=== PATIENT | male | born 1940 | race Caucasian/White ===

== ENCOUNTER → 2024-05-29 14:25 | Outpatient (REF) | payer OTHER, SELFPAY | LOC: RAD 14:25 | PROVIDERS: ATTENDING PHYSICIAN Student in an Organized Health Care Education/Training Program | DX: R49.0 Dysphonia (principal); R05.3 Chronic cough | CPT/HCPCS: 70360; 71046; 76536 ==

== ENCOUNTER → 2024-07-10 16:30 | Outpatient (REF) | payer OTHER, SELFPAY | LOC: PAVMRI 16:30 | PROVIDERS: ATTENDING PHYSICIAN Student in an Organized Health Care Education/Training Program | DX: R93.7 Abnormal findings on diagnostic imaging of other parts of musculoskeletal system (principal); R13.10 Dysphagia, unspecified | CPT/HCPCS: 72141 ==

== ENCOUNTER 2025-05-11 23:42 | Inpatient (IN) | payer OTHER, SELFPAY ==
[2025-05-11 15:55] VITALS: BP 158/64
[2025-05-11] MEDS: TYLENOL 650 MG PO (16:02)
[2025-05-11 16:44] LABS: COVID-19 Antigen Negative (Negative)
[2025-05-11 16:45] LABS: ALT (SGPT) 29 U/L (0-50); AST (SGOT) 32 U/L (17-59); Albumin 4.6 g/dl (3.5-5.0); Alkaline Phosphatase 114 U/L (38-126); Blood Urea Nitrogen 13 mg/dl (9-20); Calcium 8.7 mg/dl (8.4-10.2); Carbon Dioxide 22 mmol/L (22-30); Chloride 104 mmol/L (98-107); Glucose 119 mg/dl (70-99); Lipase 101 U/L (23-300); Potassium 4.0 mmol/L (3.5-5.1); Sodium 136 mmol/L (135-145); Total Protein 7.9 g/dl (6.3-8.2); eGFR > 60.00
[2025-05-11 16:49] LABS: Urine Character Clear (Clear)
[2025-05-11 17:02] LABS: Hematocrit 43.5 % (39.0-52.0); Hemoglobin 14.2 g/dL (13.0-18.0); Mean Corp Hgb Conc. 32.6 g/dL (33.0-37.0); Mean Corpuscular Volume 92.6 fL (80.0-94.0); Platelet Count 315 10^3/uL (130-400); Red Cell Dist. Width 13.6 % (11.5-14.5)
[2025-05-11 17:37] LABS: Nucleated Red Blood Cells % 0 % (-)
[2025-05-11 18:31] LABS: Urine Red Blood Cell 0-2 /HPF (0-2); Urine White Cell 0-2 /HPF (0-5)
--- NOTE | 2025-05-11 19:52 | ED.GENMED ---
History of Present Illness
<Yonny Rendon MD, Resident - Last Filed: 05/11/25 21:28>
General
Chief Complaint: Abdominal Pain
Source: patient
Exam Limitations: none
Time Seen by Provider: 05/11/25 19:39
History of Present Illness
History of Present Illness:
This is a 84-year-old male with no known past medical history, not on any medications presenting in the emergency department with concerns of abdominal pain. He reported that initially his symptoms included diarrhea started on and he had
explosive diarrhea for 2 days and on Sunday his diarrhea resolved however he started to notice abdominal pain which was progressively getting worse. His pain is mostly in the right upper quadrant. Admits to have some nausea but denies any
vomiting. Denies any recent sick contacts or recent travel or any other recent illness. He also felt warm today and when he checked his fever it was 102 which prompted him to visit the emergency department. He denies any previous similar episodes.
Past History
<Yonny Rendon MD, Resident - Last Filed: 05/11/25 21:28>
Past History
ED Past Medical History: None
ED Past Surgical History: Orthopedic
Patient has exhibited threatening behavior?: No
Social History
Tobacco: Non-smoker
Alcohol: Daily (Glass of wine)
Drug: None
Personal:
Living: with family
Family History
Family History: Other (Noncontributory)
Review of Systems
<Yonny Rendon MD, Resident - Last Filed: 05/11/25 21:28>
Review of Systems
Allergies reviewed?: Yes
Constitutional: Reports fever; Denies chills
EENT: Denies sore throat
Respiratory: Denies cough
Cardiac: Denies chest pain
ABD/GI: Reports abdominal pain and nausea; Denies vomiting, diarrhea or bloody stools
: Denies dysuria or frequency
Musculoskeletal: Denies joint pain
Skin: Denies itching
Neurological: Denies dizzy or weakness
Phy Exam
<Yonny Rendon MD, Resident - Last Filed: 05/11/25 21:28>
General Physical Exam
General Presentation: mild distress
General age: appears stated age
General Skin: warm
General Habitus: normal
General Mental: alert
General Hydration: appears well hydrated
Cardiovascular Exam
Cardiovascular Exam: regular rate/rhythm and no murmur
Pulmonary Exam
Pulmonary Exam: lungs clear, no crackles and no cough
Gastrointestinal Exam
Gastrointestinal Exam: soft, no pulsatile mass, non distended and tender (Right upper quadrant)
Musculoskeletal Exam
Musculoskeletal Exam: full ROM
Psychiatric Exam
Psychiatric Exam: normal mood/affect
Course
<Yonny eRndon MD, Resident - Last Filed: 05/11/25 21:28>
Orders/Labs/Results
Orders:
Orders
05/11/25 15:59
Acetaminophen [Tylenol] 650 mg PO NOW STA
05/11/25 16:17
COVID-19 Antigen Urgent
Source: Nasal Swab
Complete Blood Count/With Diff Urgent
Comprehensive Metabolic Panel Urgent
Lactic Acid Urgent
Lipase Urgent
Influenza A+B Rapid Molecular Urgent
ALENA Source: Nasal Swab
Specimen Description:
Date Specimen was Collected: 05/11/25
Time Specimen was Collected: 15:59
05/11/25 16:31
Urine Microscopic Reflex Cult Urgent
Urine Reflex Culture from UA [Urinalysis Reflex To Culture] Urgent
Date Specimen was Collected: 05/11/25
Time Specimen was Collected: 15:59
05/11/25 19:51
CT Abd/pelvis W Iv Cont Urgent
Comment:
Reason For Exam: Right upper quadrant abdominal pain
0.9% Sodium Chloride 1000 ml [Nss] 1,000 ml IV BOLUS
05/11/25 19:54
Blood Culture Q30M
ALENA Source: Blood/Venous
Specimen Description:
Blood Culture Q30M
ALENA Source: Blood/Venous
Specimen Description:
05/11/25 19:57
Ketorolac [Toradol] 15 mg IV NOW STA
Ondansetron Injectable [Zofran] 4 mg IV NOW STA
05/11/25 20:38
HYDROmorphone [Dilaudid] 0.5 mg IV NOW STA
Piperacillin/Tazo 3.375 Gram [Zosyn] 3.375 gram in 50 ml IV NOW
05/11/25 20:39
0.9% Sodium Chloride 1000 ml [Nss] 1,000 ml IV BOLUS
Abnormal Lab Results
05/11/25 05/11/25
16:17 16:31
WBC 24.9 H 10^3/uL
(4.8-10.8)
MCHC 32.6 L g/dL
(33.0-37.0)
Abs Immat Gran (auto) 0.2 H 10^3/uL
(0-0.05)
Absolute Neuts (auto) 22.0 H 10^3/uL
(1.4-6.5)
Absolute Monos (auto) 1.4 H 10^3/uL
(0.1-0.6)
Immature Gran % 0.7 H %
(0-0.5)
Neutrophils % 88.1 H %
(42.2-75.2)
Lymphocytes % 5.4 L %
(20.5-51.1)
Glucose 119 H mg/dl
(70-99)
Lactic Acid 3.0 H mmol/L
(0.7-2.0)
Urine Ketones 1+ A
(Negative)
Ur Occult Blood Reflex 1+ A
(Negative)
Urine Bacteria (Reflex) Few A
(Negative)
Urine Albumin (Reflex) 1+ A
(Neg - Trace)
05/11/25 16:17
05/11/25 16:17
Vital Signs
Initial and Last Documented VS:
Initial Vital Signs
Temp Pulse Resp BP Pulse Ox
102.0 F H 104 20 158/64 94
05/11/25 15:55 05/11/25 15:55 05/11/25 15:55 05/11/25 15:55 05/11/25 15:55
Last Documented Vital Signs
Temp Pulse Resp BP Pulse Ox
99.6 F 88 25 160/72 92
05/11/25 20:13 05/11/25 20:10 05/11/25 20:10 05/11/25 20:10 05/11/25 20:10
<Royal Pineda, DO - Last Filed: 05/11/25 21:31>
Orders/Labs/Results
Orders:
Orders
05/11/25 15:59
Acetaminophen [Tylenol] 650 mg PO NOW STA
05/11/25 16:17
COVID-19 Antigen Urgent
Source: Nasal Swab
Complete Blood Count/With Diff Urgent
Comprehensive Metabolic Panel Urgent
Lactic Acid Urgent
Lipase Urgent
Influenza A+B Rapid Molecular Urgent
ALENA Source: Nasal Swab
Specimen Description:
Date Specimen was Collected: 05/11/25
Time Specimen was Collected: 15:59
05/11/25 16:31
Urine Microscopic Reflex Cult Urgent
Urine Reflex Culture from UA [Urinalysis Reflex To Culture] Urgent
Date Specimen was Collected: 05/11/25
Time Specimen was Collected: 15:59
05/11/25 19:51
CT Abd/pelvis W Iv Cont Urgent
Comment:
Reason For Exam: Right upper quadrant abdominal pain
0.9% Sodium Chloride 1000 ml [Nss] 1,000 ml IV BOLUS
05/11/25 19:54
Blood Culture Q30M
ALENA Source: Blood/Venous
Specimen Description:
Blood Culture Q30M
ALENA Source: Blood/Venous
Specimen Description:
05/11/25 19:57
Ketorolac [Toradol] 15 mg IV NOW STA
Ondansetron Injectable [Zofran] 4 mg IV NOW STA
05/11/25 20:38
HYDROmorphone [Dilaudid] 0.5 mg IV NOW STA
Piperacillin/Tazo 3.375 Gram [Zosyn] 3.375 gram in 50 ml IV NOW
05/11/25 20:39
0.9% Sodium Chloride 1000 ml [Nss] 1,000 ml IV BOLUS
Abnormal Lab Results
05/11/25 05/11/25
16:17 16:31
WBC 24.9 H 10^3/uL
(4.8-10.8)
MCHC 32.6 L g/dL
(33.0-37.0)
Abs Immat Gran (auto) 0.2 H 10^3/uL
(0-0.05)
Absolute Neuts (auto) 22.0 H 10^3/uL
(1.4-6.5)
Absolute Monos (auto) 1.4 H 10^3/uL
(0.1-0.6)
Immature Gran % 0.7 H %
(0-0.5)
Neutrophils % 88.1 H %
(42.2-75.2)
Lymphocytes % 5.4 L %
(20.5-51.1)
Glucose 119 H mg/dl
(70-99)
Lactic Acid 3.0 H mmol/L
(0.7-2.0)
Urine Ketones 1+ A
(Negative)
Ur Occult Blood Reflex 1+ A
(Negative)
Urine Bacteria (Reflex) Few A
(Negative)
Urine Albumin (Reflex) 1+ A
(Neg - Trace)
05/11/25 16:17
05/11/25 16:17
Vital Signs
Initial and Last Documented VS:
Initial Vital Signs
Temp Pulse Resp BP Pulse Ox
102.0 F H 104 20 158/64 94
05/11/25 15:55 05/11/25 15:55 05/11/25 15:55 05/11/25 15:55 05/11/25 15:55
Last Documented Vital Signs
Temp Pulse Resp BP Pulse Ox
99.6 F 88 25 160/72 92
05/11/25 20:13 05/11/25 20:10 05/11/25 20:10 05/11/25 20:10 05/11/25 20:10
<Yonny Rendon MD, Resident - Last Filed: 05/11/25 21:28>
MDM/Problems Addressed
Differential Diagnosis Includes:
Cholelithiasis/cholecystitis/choledocholithiasis vs enteritis vs less likely liver disease vs less likely pain vs unlikely renal colic
MDM/Problems Addressed:
Patient with fever of 102.0. s/p 1 dose of Tylenol 650 mg p.o. tachycardic 104.
CBC with white count of 24.9. CMP with mild elevation of blood glucose.
Lactic acid elevated to 3.0.
Lipase of within normal limits. Urine with 1+ occult blood and few bacteria otherwise unremarkable.
COVID-negative, flu negative.
Hepatobiliary scan nuclear medicine;2009 reviewed- showed abnormal gallbladder ejection fraction
Get blood culture
CT abdomen/pelvis with IV
1 L normal saline bolus
1 dose of IV Zofran 4 mg
1 dose of IV Toradol 15 mg
Update: Repeat vital signs with temperature of 99.6. Pulse of 88. O2 sat 92% on RA
Patient continues to be in pain. Another bag of IV normal saline bolus. 1 dose of Dilaudid 0.5, started IV Zosyn
Update: CT showed The gallbladder is mildly distended with cholelithiasis and a small focus of gas in the gallbladder fundus concerning for emphysematous cholecystitis. The gallbladder abuts the hepatic flexure of the colon with some associated mild
wall thickening and stranding along the hepatic flexure which may represent an active element of reactive colitis. There is no clear fistulous connection between the colon and gallbladder.
Hospitalist and general surgery notified. Will admit the patient.
<Yonny Rendon MD, Resident - Last Filed: 05/11/25 21:28>
*Pulse Oximetry
SaO2: 94
Oxygen Mode of Delivery: Room air
<Royal Pineda, DO - Last Filed: 05/11/25 21:31>
*Radiology
Radiology exam reviewed: radiology read reviewed
*Pulse Oximetry
Patient hypoxic: no
*Critical Care Note
Total Time (30-74mins, 75-104mins- exclusive of procedures): 32
ED Attending Note
<Yonny Rendon MD, Resident - Last Filed: 05/11/25 21:28>
-
Portions of this chart may have been created with voice recognition software.� Occasional wrong word or��sound alike� substitutions may have occurred due to the inherent limitations of voice recognition software.
<Royal Pineda, - Last Filed: 05/11/25 21:31>
ED Attending Note
Patient seen and examined by attending physician: Yes
I performed a history and physical exam of patient and discussed management with resident, I reviewed resident's note and agree with documented findings and plan of care.: Yes
ED Attending Note:
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
Labs are noted, plan will involve resuscitation cultures and antibiotics imaging, likely admission
9:[address] noted report noted message sent to on-call hospitalist and general surgeon
Discharge Plan
Departure
Patient Disposition: Admit
Date of Disposition: 05/11/25
Time of Disposition: 21:27
Presentation/result/management discussed w/ accepting MD/DO: Hospitalist
Condition: Fair
Discharge Problem:
Emphysematous cholecystitis
Referrals:
UNKNOWN - PT DOES,NOT KNOW [Unknown Provider]
Interventions
Interventions:
*Risk Screen - Suicide Last Done: 05/11/25 20:11
*General Assessment Last Done: 05/11/25 15:55
*Neglect/Abuse Screening Last Done: 05/11/25 20:11
*ED- Fall Risk Assessment Last Done: 05/11/25 20:11
*ED COVID-19 Vaccine History Last Done: 05/11/25 20:11
Discharge Date and Time
Print Language: ERITREAN
[2025-05-11 19:54] VITALS: BMI 30.5
[2025-05-11] MEDS: TORADOL 15 MG IV (20:09)
[2025-05-11 20:10] VITALS: BP 160/72
[2025-05-11] MEDS: ZOFRAN 4 MG IV (20:10)
[2025-05-11] MEDS: NSS 1000 IV ×3 (20:10→22:42)
[2025-05-11 21:00] VITALS: BP 152/65
[2025-05-11] MEDS: ZOSYN 50 IV (21:00)
[2025-05-11] MEDS: DILAUDID 0.5 MG IV (21:01)
--- NOTE | 2025-05-11 21:31 | ED.GENMED ---
History of Present Illness
General
Chief Complaint: Abdominal Pain
Time Seen by Provider: 05/11/25 19:39
Past History
Past History
ED Past Medical History: None
ED Past Surgical History: Orthopedic
Patient has exhibited threatening behavior?: No
Social History
Tobacco: Non-smoker
Alcohol: Daily (Glass of wine)
Drug: None
Personal:
Living: with family
Family History
Family History: Other (Noncontributory)
Course
Orders/Labs/Results
Orders:
Orders
05/11/25 15:59
Acetaminophen [Tylenol] 650 mg PO NOW STA
05/11/25 16:17
COVID-19 Antigen Urgent
Source: Nasal Swab
Complete Blood Count/With Diff Urgent
Comprehensive Metabolic Panel Urgent
Lactic Acid Urgent
Lipase Urgent
Influenza A+B Rapid Molecular Urgent
ALENA Source: Nasal Swab
Specimen Description:
Date Specimen was Collected: 05/11/25
Time Specimen was Collected: 15:59
05/11/25 16:31
Urine Microscopic Reflex Cult Urgent
Urine Reflex Culture from UA [Urinalysis Reflex To Culture] Urgent
Date Specimen was Collected: 05/11/25
Time Specimen was Collected: 15:59
05/11/25 19:51
CT Abd/pelvis W Iv Cont Urgent
Comment:
Reason For Exam: Right upper quadrant abdominal pain
0.9% Sodium Chloride 1000 ml [Nss] 1,000 ml IV BOLUS
05/11/25 19:54
Blood Culture Q30M
ALENA Source: Blood/Venous
Specimen Description:
Blood Culture Q30M
ALENA Source: Blood/Venous
Specimen Description:
05/11/25 19:57
Ketorolac [Toradol] 15 mg IV NOW STA
Ondansetron Injectable [Zofran] 4 mg IV NOW STA
05/11/25 20:38
HYDROmorphone [Dilaudid] 0.5 mg IV NOW STA
Piperacillin/Tazo 3.375 Gram [Zosyn] 3.375 gram in 50 ml IV NOW
05/11/25 20:39
0.9% Sodium Chloride 1000 ml [Nss] 1,000 ml IV BOLUS
Abnormal Lab Results
05/11/25 05/11/25
16:17 16:31
WBC 24.9 H 10^3/uL
(4.8-10.8)
MCHC 32.6 L g/dL
(33.0-37.0)
Abs Immat Gran (auto) 0.2 H 10^3/uL
(0-0.05)
Absolute Neuts (auto) 22.0 H 10^3/uL
(1.4-6.5)
Absolute Monos (auto) 1.4 H 10^3/uL
(0.1-0.6)
Immature Gran % 0.7 H %
(0-0.5)
Neutrophils % 88.1 H %
(42.2-75.2)
Lymphocytes % 5.4 L %
(20.5-51.1)
Glucose 119 H mg/dl
(70-99)
Lactic Acid 3.0 H mmol/L
(0.7-2.0)
Urine Ketones 1+ A
(Negative)
Ur Occult Blood Reflex 1+ A
(Negative)
Urine Bacteria (Reflex) Few A
(Negative)
Urine Albumin (Reflex) 1+ A
(Neg - Trace)
05/11/25 16:17
05/11/25 16:17
Vital Signs
Initial and Last Documented VS:
Initial Vital Signs
Temp Pulse Resp BP Pulse Ox
102.0 F H 104 20 158/64 94
05/11/25 15:55 05/11/25 15:55 05/11/25 15:55 05/11/25 15:55 05/11/25 15:55
Last Documented Vital Signs
Temp Pulse Resp BP Pulse Ox
99.6 F 88 25 160/72 92
05/11/25 20:13 05/11/25 20:10 05/11/25 20:10 05/11/25 20:10 05/11/25 20:10
*Pulse Oximetry
SaO2: 92
Oxygen Mode of Delivery: Room air
ED Attending Note
-
Portions of this chart may have been created with voice recognition software.� Occasional wrong word or��sound alike� substitutions may have occurred due to the inherent limitations of voice recognition software.
Discharge Plan
Departure
Patient Disposition: Admit
Date of Disposition: 05/11/25
Time of Disposition: 21:27
Presentation/result/management discussed w/ accepting MD/DO: Hospitalist
Condition: Fair
Discharge Problem:
Emphysematous cholecystitis
Referrals:
UNKNOWN - PT DOES,NOT KNOW [Unknown Provider]
Interventions
Interventions:
*Risk Screen - Suicide Last Done: 05/11/25 20:11
*General Assessment Last Done: 05/11/25 15:55
*Neglect/Abuse Screening Last Done: 05/11/25 20:11
*ED- Fall Risk Assessment Last Done: 05/11/25 20:11
*ED COVID-19 Vaccine History Last Done: 05/11/25 20:11
Discharge Date and Time
Print Language: ANGOLAN
[2025-05-11 22:00] VITALS: BP 153/65
--- NOTE | 2025-05-11 22:46 | HPS.HSE ---
Addendum entered and electronically signed by Slade Carroll DO 05/11/25 23:53:
Patient seen and examined independently. Agree with findings and plan as set forth by BRONWYN Mtz.
Patient is an 84y M with PMH significant for dyslipidemia and anxiety who presents to ED complaining of abdominal pain. Patient reports diarrhea x several days starting last . Diarrhea resolved and he developed severe RUQ abdominal pain.
He states that he has had similar symptoms in the past due to gallbladder disease. He states that he has had gallbladder attacks intermittently over the past 50 years or so.
Patient presents to ED for evaluation. CT scan done here shows emphysematous cholecystitis.
Ass:
Acute Emphysematous Cholecystitis
Sepsis secondary to the above
Anxiety / Insomnia
Dyslipidemia
Plan:
Admit for further evaluation and treatment.
NPO, IVFs, IV abx.
Surgery consulted for further evaluation / recommendations.
Monitor for any new / worsening symptoms.
Original Note:
Family Physician
-
Family Physician: Rose Silva MD
Chief Complaint
-
abdominal pain
History of Present Illness
Patient is a 84-year-old male with past medical history significant for hyperlipidemia and anxiety who presented to [facility] ED for evaluation of abdominal pain. Patient reports eating at a new restaurant on evening that was followed by
explosive diarrhea through Sunday. Following resolution of diarrhea he started with intermittent RUQ abdominal pain. He reports patient was severe at 7-8 this morning and by 9 he felt 'morbidity' setting in. Patient reports this pain is similar to
what he has experienced in the past with his gallbladder. He also explains that he feels there is inflammation in the area of the gallbladder. Patient denies any recent travel, sickness, fever, chills, cough, shortness of breath, chest pain, nausea
or vomiting.
Medical History
Past Medical History
Past Medical History: Reports Other
Additional Past Medical History:
hyperlipidemia
anxiety
Past Surgical History: Reports Other
Additional Past Surgical History:
tonsillectomy
Hemorrhoidectomy
Right L4 TFESI 07/14/2020
Social History
Tobacco: Non-smoker
Alcohol: Daily (1-2 glasses of wine )
Drug: None
Personal:
Living: With Family
Employment: Employed
Family History
Family History: Other (Father: [place]; Mother: significant psych history )
Allergies / Home Medications
Allergies reflects when Allergies were last updated in [employer].
Home Medications with original date entered in [employer]
Allergy/Medication List:
Allergies
Allergy/AdvReac Type Severity Reaction Status Date / Time
No Known Allergies Allergy Verified 05/11/25 15:55
Home Medications
atorvastatin 1 tab PO HS 05/11/25
zolpidem 10 mg tablet 10 mg PO HS 05/11/25
Review of Systems
-
History Source: Patient
Constitutional: Reports No Symptoms
EENT: Reports No Symptoms
Respiratory: Reports No Symptoms
Cardiac: Reports No Symptoms
Abdomen/GI: Reports Abdominal Pain
: Reports No Symptoms
Musculoskeletal: Reports No Symptoms
Skin: Reports No Symptoms
Neurological: Reports No Symptoms
Endocrine: Reports No Symptoms
Hematologic/Lymphatic: Reports No Symptoms
Psych: Reports No Symptoms
Physical Exam
Vital Signs
Vital Signs
Temp Pulse Resp BP Pulse Ox
99.6 F 88 25 160/72 92
05/11/25 20:13 05/11/25 20:10 05/11/25 20:10 05/11/25 20:10 05/11/25 20:10
Physical Exam
General: Well Developed, Well Nourished, No Apparent Distress and Morbidly Obese
HEENT: NormoCephalic, Moist mucous membranes and Atraumatic
Respiratory: Clear and Non Labored Respirations
Cardiac: S1/S2 and Regular Rhythm; No Murmur, Rub or Gallop
Breast: Deferred by me
GI: Soft, Non Tender, Non Distended and Normal Bowel Sounds; No Organomegaly
Rectal: Deferred by Provider
Genito-urinary: Deferred by me
Musculoskeletal: No Clubbing, No Cyanosis and No Edema
Skin: Warm and IV/Catheter Site
Neuro: Awake, AO x 3 and Nonfocal/grossly intact
Psych: Calm and Intact Judgment/Insight
Laboratory Results
-
05/11/25 16:17
05/11/25 16:17
Laboratory Results
Lactic Acid 3.0 mmol/L (0.7-2.0) H 05/11/25 16:17
Total Bilirubin 0.7 mg/dl (0.2-1.3) 05/11/25 16:17
AST 32 U/L (17-59) 05/11/25 16:17
ALT 29 U/L (0-50) 05/11/25 16:17
Alkaline Phosphatase 114 U/L (38-126) 05/11/25 16:17
Lipase 101 U/L (23-300) 05/11/25 16:17
Data Reviewed
-
CT Scan: Report Reviewed by me (Abd/Pel: The gallbladder is mildly distended with cholelithiasis and a small focus of gas in the gallbladder fundus concerning for emphysematous cholecystitis. The gallbladder abuts the hepatic flexure of the colon
with some associated mild wall thickening and stranding along the hepatic flexure whi)
Lab Data: Labs Reviewed by me (WBC 24.9, Neut 88.1, Lactic 3.0)
Impression/Plan
-
IMPRESSION/PLAN:
#abdominal pain
#sepsis likely 2/2 acute cholecystitis, emphysematous cholecystitis
WBC 24.9, Neut 88.1, Lactic 3.0
Abd/Pel CT: The gallbladder is mildly distended with cholelithiasis and a small focus of gas in the gallbladder fundus concerning for emphysematous cholecystitis. The gallbladder abuts the hepatic flexure
of the colon with some associated mild wall thickening and stranding along the hepatic flexure which may represent an active element of reactive colitis. There is no clear fistulous connection
between the colon and gallbladder.
Hepatic steatosis.
Moderate prostatomegaly.
- Admit to med/surg
- Consult Surgery
- IVF NSS 100cc/hr
- IV Zosyn
- pain regimen
- antiemetics
- NPO
#insomnia
- continue zolpidem
#hyperlipidemia
- atorvastatin at home, unaware of dose
#anxiety
Code status: full code
DVT prophylaxis: SCDs
--- NOTE | 2025-05-11 23:30 | EDRN ---
Patient ambulated into and out of bathroom and back in bed resting comfortably, Dr. Carroll in to see patient.
[2025-05-12] VITALS (16 sets, daily range): BP systolic 10–150; BP diastolic 57–85; BMI 30.3
[2025-05-12] MEDS: NSS 1000 IV ×2 (01:23→17:34)
[2025-05-12] MEDS: DILAUDID 0.5 MG IV ×2 (01:25→05:23)
[2025-05-12] MEDS: AMBIEN 10 MG PO ×2 (02:11→21:18)
[2025-05-12 07:18] LABS: Blood Urea Nitrogen 14 mg/dl (9-20); Calcium 7.8 mg/dl (8.4-10.2); Carbon Dioxide 24 mmol/L (22-30); Chloride 107 mmol/L (98-107); Estimated Creatinine Clearance 83 ml/min; Glucose 118 mg/dl (70-99); Potassium 4.2 mmol/L (3.5-5.1); Sodium 138 mmol/L (135-145); eGFR > 60.00
[2025-05-12 07:27] LABS: Hematocrit 37.0 % (39.0-52.0); Hemoglobin 12.2 g/dL (13.0-18.0); Mean Corp Hgb Conc. 33.0 g/dL (33.0-37.0); Mean Corpuscular Volume 93.7 fL (80.0-94.0); Platelet Count 251 10^3/uL (130-400); Red Cell Dist. Width 14.0 % (11.5-14.5)
[2025-05-12] MEDS: ZOSYN 50 IV ×3 (08:28→19:47)
--- NOTE | 2025-05-12 08:44 | CON.GS ---
Addendum entered and electronically signed by Richard Watson MD 05/12/25 09:44:
Patient seen and examined.
Patient is a 84 yo M yo M with a PMH of obesity, spinal stenosis s/p lumbar discectomy and fusion, HLD, and recurrent episodes of symptomatic cholelithiasis who presents to the ER with approximately 6 days of upper abdominal pain. He states that
his symptoms began last after eating had a [employer] restaurant up in [facility]. He reports episodes of diarrhea and crampy abdominal discomfort. Over the weekend he had more focal RUQ abdominal discomfort. He reports several attacks over the
past 50 years occurring on a monthly to bimonthly basis. Episodes are usually relieved with OTC pain medications and nausea and vomiting. Currently he reports persistent RUQ discomfort. Associated fevers and chills. No current or vomiting. He
denies any jaundice, pale stools, or blood in urine. No notable family history.
Gen: NAD
Abd: soft, tender to palpation in RUQ, obese, distended, no diffuse peritonitis, no prior abdominal incisions
Labs and CT scan were reviewed
Patient is a 84 yo M p/w severe emphysematous acute calculus cholecystitis
The natural history and pathophysiology of biliary and stone disease was briefly reviewed. Options for management including medical management with antibiotics, procedural management with cholecystostomy tube, and surgical management
cholecystectomy were considered and discussed. The pros and cons of all approaches was discussed. Given his persistent symptoms recommend cholecystectomy.
Plan for laparoscopic possible open cholecystectomy with cholangiogram. The procedure itself, as well as the risks, benefits, and alternatives was discussed. Specific, we discussed risks of bleeding, infection, injury to surrounding structures
(bowel, bile ducts), CBD injury, need for open procedure. We did discuss that given his delay in presentation and management of his gallbladder issues both during this immediate attack and prior attacks he he may have a more chronic cholecystitis
and difficult operation. Typical postprocedure recovery including pain management, potential need for operative training, activity restrictions, and the 10 to 20% risks of fluctuations in GI function discussed. All questions answered. Consent
signed.
-- Laparoscopic cholecystectomy with IOC
-- NPO, IVF
-- Abx: Zosyn
-- Pain control: Tylenol, IV Dilaudid PRN
Original Note:
Consultation
-
Date/Time Consultation Requested: 05/11/2025
Date/Time Consultation Performed: 05/12/2025
Requesting Provider: Slade Carroll
Performing Provider: Walter Ramos
Reason for Consultation: Sepsis, Emphysematous Cholecystitis
Medical History
-
Chief Complaint: 84 y/o M w/ PMH of dyslipidemia and anxiety c/o severe RUQ abdominal pain
History of Present Illness:
84 y/o M with PMH of dyslipidemia and anxiety presented to the ED yesterday c/o abdominal pain. Patient states that he went out to eat a veggie restaurant in [facility] on and had explosive diarrhea afterwards. He states he's been having this
diarrhea since but has since resolved. Patient also states that he started having severe RUQ pain around this time as well. Patient is admits to having similar episodes in the past due to Gallbladder disease. He states that he has had
Gallbladder attacks intermittently over the last 5 decades. He currently denies any nausea, vomiting, or pain (he is on pain meds prn). He also denies any BM or passing of flatus since arrival. He admits to burping a little this morning. Patient
denies any f/c/myalgias. He states that he was offered gallbladder surgery in the past but always declined.
Past Medical History
Past Surgical History: Orthopedic (Spinal stenosis (back surgery))
Social History
Tobacco: Non-Smoker
Alcohol: Occasional
Drug: None
Personal:
Living: With Family
Family History
Family History: CAD (Father from CAD at the age of 50)
Allergies / Home Medications
Allergy/AdvReac Type Severity Reaction Status Date / Time
No Known Allergies Allergy Verified 05/11/25 15:55
�Medication �Instructions �Recorded �Confirmed �Type
acetaminophen 500 mg tablet 2,000 mg PO BIDPRN PRN mild pain 05/11/25 05/11/25 History
(Tylenol Extra Strength)
alprazolam 0.25 mg tablet 0.25 mg PO DAILYPRN PRN anxiety 05/11/25 05/11/25 History
atorvastatin 10 mg tablet 10 mg PO HS High Cholesterol 05/11/25 05/11/25 History
bismuth subsalicylate 262 mg/15 mL 524 mg PO TIDPRN PRN stomach pain 05/11/25 05/11/25 History
oral suspension (Kaopectate
(bismuth subsalicylate))
bismuth subsalicylate 262 mg/15 mL 1,048 mg PO ONCE PRN stomach pain 05/11/25 05/11/25 History
oral suspension (Pepto-Bismol)
omeprazole 40 mg capsule,delayed 40 mg PO DAILY Gastrointestinal 05/11/25 05/11/25 History
release Issue
zolpidem 10 mg tablet 10 mg PO HS Sleep 05/11/25 05/11/25 History
AFVSS
Labs: Neutrophils increased, thrombocytes decreased. Last recorded lactic acid was 1.6.
Review of Systems
-
History Source: Patient
All other systems: Negative unless noted
Abdomen/GI: Abdominal Pain
: Difficulty Voiding
A 10 point review of systems was completed, and was negative except as per HPI.
Physical Exam
Vital Signs
Temp Pulse Resp BP Pulse Ox
98.0 F 79 17 136/85 95
05/12/25 07:50 05/12/25 07:50 05/12/25 07:50 05/12/25 07:50 05/12/25 07:50
05/11/25 05/12/25 05/13/25
06:59 06:59 06:59
Actual Weight 95.663 kg
Body Mass Index (BMI) 30.3
Lab Results
05/12/25 06:27
05/12/25 06:27
WBC 35.8 10^3/uL (4.8-10.8) H 05/12/25 06:27
Hgb 12.2 g/dL (13.0-18.0) L 05/12/25 06:27
Hct 37.0 % (39.0-52.0) L 05/12/25 06:27
Plt Count 251 10^3/uL (130-400) D 05/12/25 06:27
Abs Immat Gran (auto) 0.2 10^3/uL (0-0.05) H 05/11/25 16:17
Neutrophils % 88.1 % (42.2-75.2) H 05/11/25 16:17
CT of Abdomen/Pelvis with IV contrast: Gallbladder mildly distended with small focus on fundus.
Labs: WBC Count went up to 35.8 (H). Neutrophils increased and Lymphocytes decreased indicating active underying inflammation and infection.
Physical Exam
General: Well Developed, Well Nourished and Comfortable
HEENT: Normocephalic, Anicteric and Atraumatic
Respiratory: Non Labored Respirations
Breast: Deferred by me
GI: Tender (TTP around RUQ area. ) and Distended
Rectal: Deferred by Provider
Musculoskeletal: Other
Neuro: AO x 3
Psych: Calm
Data Reviewed
-
CT Scan: Discussed with Physician and Discussed with Patient
Labs: Discussed with Physician and Discussed with Patient
Critical Care Time (in minutes): 25
Total Time Spent with Patient (in minutes): 40
Assessment / Plan
-
84 y/o M w/ PMH of HLD and anxiety presenting with severe RUQ abdominal pain and severe diarrhea. Patient CT scan indicated Emphysematous Cholecystitis.
Keep patient NPO
Continue IVF
Continue broad spectrum IV Abx (Zosyn) Q6H
Recommend emergent laparoscopic cholecystectomy today
Follow labs to trend infection status
Patient was educated on the risks of the procedure and what post procedure care would look like.
Patient was given consent form to sign for surgery.
--- NOTE | 2025-05-12 09:44 | W.SUR.PREOP ---
Pre-Operative Surgical Note
-
I have examined this patient prior to the performance of the scheduled procedure.
The patient's condition is unchanged from the time of the current History and
Physical and the patient is able to undergo the scheduled procedure.
--- NOTE | 2025-05-12 11:35 | W.PN.HOSP.TC ---
Today's Communication/Plan
-
lap autumn
abx
f/u stool cultures, cdiff if having diarrhea
pain control
Assessment / Plan
Assessment / Plan
Physical Exam
General: Well Developed, Well Nourished, No Apparent Distress and Morbidly Obese
HEENT: NormoCephalic, Moist mucous membranes and Atraumatic
Respiratory: Clear and Non Labored Respirations
Cardiac: S1/S2 and Regular Rhythm; No Murmur, Rub or Gallop
Breast: Deferred by me
GI: Soft, Non Tender ({on dilaudid), Non Distended and Normal Bowel Sounds; No Organomegaly
Rectal: Deferred by Provider
Genito-urinary: Deferred by me
Musculoskeletal: No Clubbing, No Cyanosis and No Edema
Skin: Warm and IV/Catheter Site
Neuro: Awake, AO x 3 and Nonfocal/grossly intact
Psych: Calm and Intact Judgment/Insight
#abdominal pain
#sepsis likely 2/2 acute cholecystitis, emphysematous cholecystitis
- IVF
-Zosyn
- Surgery consulted for lap autumn
- pain regimen
- antiemetics
- NPO
-F/u cultures
-CDiff ordered although no BM x 2 days, therefore doubt CDiff, and most likely colitis, already on antibiotics
#insomnia
- continue zolpidem
#hyperlipidemia
- atorvastatin - holding while npo
#anxiety
# Prostatatomegaly
� Follow-up urology outpatient
Total time spent on today's encounter was 53 minutes which included time spent in counseling the patient/family regarding diagnosis and treatment plan as listed above, goals of care, and symptom management. Case was discussed with nursing staff,
specialists, and care coordinators/case management. All labs and imaging personally reviewed by me. Remainder the time spent in detailed review of previous records, lab data, imaging, and other medical provider documentation.
Anticipated Discharge: Today
Subjective/Interval History
-
Date of Service: May 12, 2025
Pain controlled by opiates
Objective Data
-
Labs:
Laboratory Results
05/12/25
06:27
WBC 35.8 H
Hgb 12.2 L
Hct 37.0 L
Plt Count 251 D
Sodium 138
Potassium 4.2
Chloride 107
Carbon Dioxide 24
BUN 14
Creatinine 0.8
Glucose 118 H
Calcium 7.8 L
Vital Signs:
Vital Signs
Temp Pulse Resp BP Pulse Ox
98.0 F 79 17 136/85 95
05/12/25 07:50 05/12/25 07:50 05/12/25 07:50 05/12/25 07:50 05/12/25 08:15
Review of Systems
-
History Source: Patient
All other systems: Not reviewed unless documented
Data Reviewed
-
CT Scan: Report Reviewed by me
Labs: Labs Reviewed by me
--- NOTE | 2025-05-12 14:39 | W.IMMPOSTOP ---
Surgical Immed Post Op Note
-
Primary Surgeon: Walter
Assisting Surgeon: None
Pre-op Diagnosis: Acute emphysematous cholecystitis
Post-op Diagnosis: Acute gangrenous and emphysematous cholecystitis
Procedure Performed: Laparoscopic cholecystectomy with IOC
Anesthesia Type: General
Specimen / Cultures:
1. Gallbladder
Estimated Blood Loss: 3 cc
Complications: None
Operative Findings:
1. Severely inflamed, gangrenous with patchy necrosis, emphysematous GB with moderate wall thickening, black stones and purulence within GB
2. Critical view
3. IOC with anatomy confirmed and no clear evidence of filling defects (study limited by filling of GB)
4. Artery take with clips, duct with clips and 0 PDS Endoloop
5. 19 Fr Eamon drain into operative field
Plan:
-- LEONILA drain to remain in place until POD#2
-- Plan for 7 days of post-op abx given purulence and sepsis present on admission
--- NOTE | 2025-05-12 15:21 | CM ---
CM following re: discharge planning.
Reviewed pt's chart, met with pt earlier today.
Pt is an 84 year old male, admitted with primary dx of POD#0 Laparoscopic cholecystectomy with IOC. Continue supportive care.
Pt lives with spouse 2SH, 2 steps to enter, has supportive family. pt described himself as independent in all areas [employer].
PCP: Rose Silva
Pharmacy: [facility]
D/C plan: uncertain at this time and will depend on pt's progress.
CM will follow with discharge plan updates as hospitalization progresses
--- NOTE | 2025-05-12 17:48 | PTCARENOTE ---
Pt arrived from PACU s/p lap autumn. Pt has 4 lap sites and a LEONILA drain in the RUQ with serosang drainage. Pt returned to floor on 4L at 92%. IS encouraged. Care ongoing.
[2025-05-12] MEDS: LIPITOR 10 MG PO (21:18)
[2025-05-13] MEDS: ZOSYN 50 IV ×4 (01:41→20:09)
[2025-05-13 03:10] VITALS: BP 139/67
[2025-05-13] MEDS: NSS 1000 IV (04:31)
[2025-05-13 06:06] LABS: Hematocrit 36.6 % (39.0-52.0); Hemoglobin 11.7 g/dL (13.0-18.0); Mean Corp Hgb Conc. 32.0 g/dL (33.0-37.0); Mean Corpuscular Volume 94.8 fL (80.0-94.0); Platelet Count 238 10^3/uL (130-400); Red Cell Dist. Width 14.5 % (11.5-14.5)
[2025-05-13 06:37] LABS: ALT (SGPT) 47 U/L (0-50); AST (SGOT) 47 U/L (17-59); Albumin 3.3 g/dl (3.5-5.0); Alkaline Phosphatase 84 U/L (38-126); Blood Urea Nitrogen 15 mg/dl (9-20); Calcium 8.1 mg/dl (8.4-10.2); Carbon Dioxide 28 mmol/L (22-30); Chloride 108 mmol/L (98-107); Estimated Creatinine Clearance 73 ml/min; Glucose 118 mg/dl (70-99); Potassium 4.3 mmol/L (3.5-5.1); Sodium 138 mmol/L (135-145); Total Protein 6.0 g/dl (6.3-8.2); eGFR > 60.00
[2025-05-13 07:50] VITALS: BP 161/74
[2025-05-13] MEDS: PROTONIX IV 40 MG IV (08:36)
[2025-05-13] MEDS: DUONEB 3 ML INH ×3 (09:57→18:19)
--- NOTE | 2025-05-13 09:57 | PTCARENOTE ---
Received care of pt. Pt SOB and lungs diminished with expiratory wheezing and dyspnea at rest. Pt able to hit 750-[address] Paulino notified. Chest xray and echo ordered. Nebulizers and lasix ordered. Advised to give lasix after chest xray
results. Care ongoing.
--- NOTE | 2025-05-13 10:17 | W.PN.GS2 ---
Addendum entered and electronically signed by Richard Watson MD 05/13/25 15:28:
Patient seen and examined.
Pain overall well-controlled. No nausea or vomiting. Reports passing flatus, no BM. Reports some wheezing and shortness of breath. Denies chest pain. No fevers.
Gen: NAD
Abd: soft, appropriately tender, obese, ND, non-peritoneal, incisions c/d/i - no erythema, ecchymosis or drainage, LEONILA serosang, non-bilious
Patient is an 84 yo M p/w acute gangrenous, emphysematous cholecystitis
POD#1 s/p laparoscopic cholecystectomy with IOC
AVSS
Labs notable for leukocytosis 29 downtrending, stable Hb, normal bilirubin, LFTs, and ALP
Recovering well from a postoperative standpoint. Cardiopulmonary workup for postoperative shortness of breath per Hospitalist (CXR and TTE). Okay for low-fat diet as tolerated. MiraLAX for bowel function. Trend labs. Tentative plan for LEONILA
removal tomorrow pending output and labs. Continue with the postoperative antibiotics, would recommend at least 7 days postoperative coverage.
-- LFD
-- HLIV
-- Pain control: Tylenol, Toradol, Oxycodone
-- Abx: Zosyn, plan for at least 7 days post-op
-- OK for home meds
-- DVT: Lovenox
-- GI: Home PPI
-- Maintain LEONILA, likely DC tomorrow pending outputs and labs
Original Note:
Today's Communication / Plan
-
Current temperature (98.1) indicates that patient is afebrile.
Lab values with normal LFT's and decreasing WBC count (35.8 down to 29.0) indicate inflammation and infection is resolving.
Continue 7 day Post op Abx regimen d/t purulence and sepsis seen on admission.
Continue to monitor drain output for proper volume, any changes from serosanguinious fluid drainage that might indicate bile leak.
Remove drain POD #2 if patient is clinically improving and drainage becomes minimal stays non-purulent.
Advance patient diet from clears to solid LFD as long as patient can tolerate it.
Transition off of IVF if tolerating solid food.
Order nebulizer treatment to help patient with his SOB.
If patient continues to improve, he can be considered for discharge.
Assessment / Plan
-
84 y/o M s/p laparoscopic cholecystectomy w IOC for acute gangrenous cholecystitis.
Patient is stable and recovering well
Follow lab trend
Advance diet from clears to solid LFT
Check drain output
Continue Abx
Order Nebulizer treatment for SOB
Time Spent
Total Time Spent with Patient (in minutes): 40
Subjective Data
-
Date of Service: May 13, 2025
Patient is a 84 yo M POD #1 s/p laparoscopic cholecystectomy w/ IOC for his acute gangrenous and emphysematous cholecystitis. Patient has a PMH of obesity, spinal stenosis s/p lumbar discectomy and fusion, HLD, and recurrent episodes of symptomatic
cholelithiasis. He initially presented to the ER with approximately 6 days of upper abdominal pain, stating that his symptoms began last after eating at a veggie restaurant [place] [facility]. Patient currently denies any n/v/f/c/BM/flatus.
Patient admits to having a more noticeable wheezing and SOB as well as coughing up some clear expectorate this morning. Patient states that he's ready to move from a clear to a LFD.
Objective Data
-
Intake and Output
05/12/25 05/13/25 07
06:59 06:59 06:59
Intake Total 180 / 180 100 / 100
Output Total 10 / 10 40 / 40
Balance 170 / 170 60 / 60
Intake:
Oral fluids 30 / 30
IV fluids (Total) 150 / 150
Normosol 150 / 150
IV piggybacks 100 / 100
Output:
Drain Output (Total)
Right Upper Abdomen Don-
Dsouza
Other:
Number of approximated MODERATE 1 2 1
amounts of urine
Vital Signs
Temp Pulse Resp BP Pulse Ox
98.1 F 77 18 161/74 95
05/13/25 07:50 05/13/25 09:59 05/13/25 09:59 05/13/25 07:50 05/13/25 09:59
Lab Results
05/13/25 05:37
05/13/25 05:37
Calcium 8.1 mg/dl (8.4-10.2) L 05/13/25 05:37
Total Bilirubin 0.6 mg/dl (0.2-1.3) 05/13/25 05:37
AST 47 U/L (17-59) 05/13/25 05:37
ALT 47 U/L (0-50) 05/13/25 05:37
Alkaline Phosphatase 84 U/L (38-126) 05/13/25 05:37
Total Protein 6.0 g/dl (6.3-8.2) L D 05/13/25 05:37
Albumin 3.3 g/dl (3.5-5.0) L 05/13/25 05:37
AFVSS (except BP is a elevated at 161/74)
Labs: LFT normal, WBC Count trending down to (29.0)
Physical Exam
-
General: NAD
AAAOx3
Chest: No Labored Breathing
Abdomen: No TTP around RUQ/Drain site. Drain site is healing well. Drain output was emptied earlier this morning. Drain fluid looks serosanguinous.
Patient has a trejo catheter: No
Patient has a central line: No
--- NOTE | 2025-05-13 11:41 | W.PN.HOSP.TC ---
Today's Communication/Plan
-
IV lasix
ECHO
Duonebs
IC, Acapella
Drain management
abx
Assessment / Plan
Assessment / Plan
Physical Exam
General: Well Developed, Well Nourished, No Apparent Distress and Morbidly Obese
HEENT: NormoCephalic, Moist mucous membranes and Atraumatic
Respiratory: Expiratory wheeze
Cardiac: S1/S2 and Regular Rhythm; No Murmur, Rub or Gallop
Breast: Deferred by me
GI: Soft, Non Tender ({on dilaudid), Non Distended and Normal Bowel Sounds; No Organomegaly
Rectal: Deferred by Provider
Genito-urinary: Deferred by me
Musculoskeletal: No Clubbing, No Cyanosis and No Edema
Skin: Warm and IV/Catheter Site
Neuro: Awake, AO x 3 and Nonfocal/grossly intact
Psych: Calm and Intact Judgment/Insight
#abdominal pain
#sepsis likely 2/2 acute cholecystitis, emphysematous cholecystitis
-s/p Lap Autumn 05/12 with IOC for acute gangrenous cholecystitis
- IVF
-Zosyn
-Continue 7 day Post op Abx regimen d/t purulence and sepsis seen on admission.
-Drain to stay in place until most likely tomorrow
- pain regimen
-advance diet
-F/u cultures
--ADAT
-no diarrhea noted
#Acute Hypoxic Respiratory failure
#Dyspnea
-89% on RA
- suspect fluid overload
-Duonebs did not help patient
-Already on abx, no obvious productive cough
-continue IC, Acapella
- add on proBNP
-ECHO
-Trial IV lasix
#insomnia
- continue zolpidem
#hyperlipidemia
- atorvastatin - holding while npo
#anxiety
# Prostatatomegaly
� Follow-up urology outpatient
Total time spent on today's encounter was 51 minutes which included time spent in counseling the patient/family regarding diagnosis and treatment plan as listed above, goals of care, and symptom management. Case was discussed with nursing staff,
specialists, and care coordinators/case management. All labs and imaging personally reviewed by me. Remainder the time spent in detailed review of previous records, lab data, imaging, and other medical provider documentation.
Anticipated Discharge: 24 - 48 hours
Subjective/Interval History
-
Date of Service: May 13, 2025
s/p lap autumn; dyspneic and with expiratory wheeze this am
Objective Data
-
Labs:
Laboratory Results
05/13/25
05:37
WBC 29.0 H
Hgb 11.7 L
Hct 36.6 L
Plt Count 238
Sodium 138
Potassium 4.3
Chloride 108 H
Carbon Dioxide 28
BUN 15
Creatinine 0.9
Glucose 118 H
Calcium 8.1 L
Total Bilirubin 0.6
AST 47
ALT 47
Alkaline Phosphatase 84
Vital Signs:
Vital Signs
Temp Pulse Resp BP Pulse Ox
98.1 F 77 18 161/74 95
05/13/25 07:50 05/13/25 09:59 05/13/25 09:59 05/13/25 07:50 05/13/25 09:59
I&O
05/12/25 05/13/25 05/14/25
06:59 06:59 06:59
Intake Total 180 / 180 220 / 220
Output Total 10 / 140 / 140
Balance 170 / 170 80 / 80
Review of Systems
-
History Source: Patient
All other systems: Reviewed and negative
Data Reviewed
-
CT Scan: Report Reviewed by me
Labs: Labs Reviewed by me
[2025-05-13 12:00] VITALS: BP 164/84
[2025-05-13] MEDS: DUONEB INH (12:07)
[2025-05-13] MEDS: LASIX 40 MG IV (12:10)
--- NOTE | 2025-05-13 14:59 | CM ---
CM following re: discharge planning.
Reviewed pt's chart, met with pt and pt's spouse at bedside.
Pt is POD#1 s/p laparoscopic cholecystectomy w IOC for acute gangrenous cholecystitis. Pt stated he is doing well. Pt expressed his desire to return back home at discharge. Spouse stated she will transport pt home.
D/C plan: home with no anticipated after care VN needs. Spouse to transport.
CM will follow with discharge plan updates as hospitalization progresses
[2025-05-13 15:30] VITALS: BP 148/88
[2025-05-13] MEDS: LOVENOX 40 MG SC (17:13)
[2025-05-13] MEDS: NSS IV (19:20)
[2025-05-13] MEDS: AMBIEN 10 MG PO (22:06)
[2025-05-13] MEDS: LIPITOR 10 MG PO (22:06)
[2025-05-13 23:10] VITALS: BP 105/70
[2025-05-14] MEDS: ZOSYN 50 IV ×2 (01:09→08:06)
[2025-05-14 06:04] LABS: Hematocrit 35.7 % (39.0-52.0); Hemoglobin 11.8 g/dL (13.0-18.0); Mean Corp Hgb Conc. 33.1 g/dL (33.0-37.0); Mean Corpuscular Volume 91.8 fL (80.0-94.0); Platelet Count 254 10^3/uL (130-400); Red Cell Dist. Width 14.3 % (11.5-14.5)
[2025-05-14 06:33] LABS: ALT (SGPT) 48 U/L (0-50); AST (SGOT) 47 U/L (17-59); Albumin 3.3 g/dl (3.5-5.0); Alkaline Phosphatase 77 U/L (38-126); Blood Urea Nitrogen 17 mg/dl (9-20); Calcium 7.9 mg/dl (8.4-10.2); Carbon Dioxide 28 mmol/L (22-30); Chloride 105 mmol/L (98-107); Estimated Creatinine Clearance 73 ml/min; Glucose 108 mg/dl (70-99); Potassium 3.5 mmol/L (3.5-5.1); Sodium 137 mmol/L (135-145); Total Protein 6.0 g/dl (6.3-8.2); eGFR > 60.00
[2025-05-14 07:20] VITALS: BP 129/71
[2025-05-14] MEDS: PROTONIX IV 40 MG IV (08:06)
[2025-05-14] MEDS: NSS (PRESERVATIVE FREE) 10 ML IV (08:06)
[2025-05-14] MEDS: FLUSH (NSS) 1 FLUSH IV (08:07)
[2025-05-14] MEDS: MIRALAX 17 GRAMS PO (08:13)
[2025-05-14] MEDS: DUONEB 3 ML INH (08:26)
--- NOTE | 2025-05-14 08:39 | W.PN.GS2 ---
Today's Communication / Plan
-
-- Continue pulm toilet and OOB
-- Abx: Zosyn, plan for at least 7 days post-op (Augmentin on DC)
-- OK for DC from surgical standpoint
Assessment / Plan
-
Patient is an 84 yo M p/w acute gangrenous, emphysematous cholecystitis
POD#2 s/p laparoscopic cholecystectomy with IOC
AVSS
Labs notable for leukocytosis 15 downtrending, stable Hb, normal bilirubin, LFTs, and ALP
Recovering well from a postoperative standpoint. Cardiopulmonary workup for postoperative shortness of breath per Hospitalist reviewed, no clear concerning findings apart from chronically elevated RIGHT diaphragm and possible atelectasis versus
pneumonia. Continue low-fat diet as tolerated. MiraLAX for bowel function. LEONILA removed. Continue with the postoperative antibiotics, would recommend at least 7 days postoperative coverage.
-- LFD
-- Pain control: Tylenol, Toradol, Tramadol
-- Abx: Zosyn, plan for at least 7 days post-op (Augmentin on DC)
-- Continue pulm toilet and OOB
-- OK for home meds
-- DVT: Lovenox
-- GI: Home PPI
-- OK for DC from surgical standpoint
Subjective Data
-
Date of Service: May 14, 2025
No complaints, feels much improved. Pain well-controlled. No nausea or vomiting. Reports flatus, no BM. No fevers. Ambulating. Voiding
Objective Data
-
Intake and Output
05/13/25 05/14/25 05/15/25
06:59 06:59 06:59
Intake Total 180 / 180 1580 / 1580 480 / 480
Output Total 10 / 10 160 / 160
Balance 170 / 170 1420 / 1420 480 / 480
Intake:
Oral fluids 30 / 30 1080 / 1080 480 / 480
IV fluids (Total) 150 / 150 300 / 300
Normosol 150 / 150
IV piggybacks 200 / 200
Output:
Drain Output (Total) 60
Right Upper Abdomen Don- 60
Dsouza
Urine, Voided 100 / 100
Other:
Number of approximated MODERATE 2 1
amounts of urine
Number of approximated LARGE 1
amounts of urine
Vital Signs
Temp Pulse Resp BP Pulse Ox
98.4 F 89 16 129/71 94
05/14/25 07:20 05/14/25 07:20 05/14/25 07:20 05/14/25 07:20 05/14/25 07:20
Lab Results
05/14/25 05:53
05/14/25 05:53
Calcium 7.9 mg/dl (8.4-10.2) L 05/14/25 05:53
Total Bilirubin 0.7 mg/dl (0.2-1.3) 05/14/25 05:53
AST 47 U/L (17-59) 05/14/25 05:53
ALT 48 U/L (0-50) 05/14/25 05:53
Alkaline Phosphatase 77 U/L (38-126) 05/14/25 05:53
Total Protein 6.0 g/dl (6.3-8.2) L 05/14/25 05:53
Albumin 3.3 g/dl (3.5-5.0) L 05/14/25 05:53
Physical Exam
-
Gen: NAD
Abd: soft, mild tenderness, ND, non-peritoneal, incisions c/d/i - no erythema, ecchymosis or drainage, LEONILA serosang, non-bilious
Patient has a trejo catheter: No
Patient has a central line: No
--- NOTE | 2025-05-14 09:12 | W.PN.GS2 ---
Today's Communication / Plan
-
Patient was educated on how to proceed slowly with his diet at home.
LEONILA Drain was removed.
Continue pulmonary toilet and OOB.
Continue Abx (Zosyn) for at least 7 days post op. (Augementin on DC)
Continue pain meds prn
DVT ppx: Lovenox
GI ppx: Home PPI
Surgical team has signed off. Patient is ready for discharge.
Assessment / Plan
-
Patient is an 84 yo M p/w acute gangrenous, emphysematous cholecystitis
POD#2 s/p laparoscopic cholecystectomy with IOC
AVSS
Labs notable for leukocytosis 15 downtrending, stable Hb, normal bilirubin, LFTs, and ALP
Recovering well from a postoperative standpoint. Cardiopulmonary workup for postoperative shortness of breath per Hospitalist reviewed, no clear concerning findings apart from chronically elevated RIGHT diaphragm and possible atelectasis versus
pneumonia. Continue low-fat diet as tolerated. MiraLAX for bowel function. LEONILA removed. Continue with the postoperative antibiotics, would recommend at least 7 days postoperative coverage.
-- LFD
-- Pain control: Tylenol, Toradol, Tramadol
-- Abx: Zosyn, plan for at least 7 days post-op (Augmentin on DC)
-- Continue pulm toilet and OOB
-- OK for home meds
-- DVT: Lovenox
-- GI: Home PPI
-- OK for DC from surgical standpoint
Time Spent
Total Time Spent with Patient (in minutes): 30
Subjective Data
-
Date of Service: May 14, 2025
Patient is an 84 yo M p/w acute gangrenous, emphysematous cholecystitis. He is POD #2 s/p laparoscopic cholecystectomy with IOC. Patient denies any pain rating it a 1/10. He also denies any n/v/d/f. He does state that he has 1-2 episodes of passing
gas this morning. Patient states that he feels much better is anxious to go home. He also said his breathing has improved a lot since yesterday. Patient states that he has been tolerating his LFD of solids very well. He also states that he has been
ambulating more getting in and out of bed.
Objective Data
-
Intake and Output
05/13/25 05/14/25 05/15/25
06:59 06:59 06:59
Intake Total 180 / 180 1580 / 1580 480 / 480
Output Total 160 / 160
Balance 170 / 170 1420 / 1420 480 / 480
Intake:
Oral fluids 30 / 30 1080 / 1080 480 / 480
IV fluids (Total) 150 / 150 300 / 300
Normosol 150 / 150
IV piggybacks 200 / 200
Output:
Drain Output (Total) 60 / 60
Right Upper Abdomen Don- 60 60
Dsouza
Urine, Voided 100 / 100
Other:
Number of approximated MODERATE 2 1
amounts of urine
Number of approximated LARGE 1
amounts of urine
Vital Signs
Temp Pulse Resp BP Pulse Ox
98.4 F 89 16 129/71 94
05/14/25 07:20 05/14/25 07:20 05/14/25 07:20 05/14/25 07:20 05/14/25 07:20
Lab Results
05/14/25 05:53
05/14/25 05:53
Calcium 7.9 mg/dl (8.4-10.2) L 05/14/25 05:53
Total Bilirubin 0.7 mg/dl (0.2-1.3) 05/14/25 05:53
AST 47 U/L (17-59) 05/14/25 05:53
ALT 48 U/L (0-50) 05/14/25 05:53
Alkaline Phosphatase 77 U/L (38-126) 05/14/25 05:53
Total Protein 6.0 g/dl (6.3-8.2) L 05/14/25 05:53
Albumin 3.3 g/dl (3.5-5.0) L 05/14/25 05:53
AFVSS
Labs: WNL. WBC count trending downwards (15.8), Total bilirubin and LFT normal.
Physical Exam
-
General: NAD
AAAOx3
Chest: No labored breathing
Abdomen: No distention or TTP around incision site of abdomen. Drain output has decreased and is still serosanguinis in nature.
Patient has a trejo catheter: No
Patient has a central line: No
[2025-05-14] MEDS: DUONEB INH (11:20)
--- NOTE | 2025-05-14 11:36 | W.PN.HOSP.TC ---
Addendum entered and electronically signed by Rogelio Paulino MD 05/14/25 15:46:
[id number]
Original Note:
Today's Communication/Plan
-
abx course
f/u pcp and surgery outpt
Assessment / Plan
Assessment / Plan
Physical Exam
General: Well Developed, Well Nourished, No Apparent Distress and Morbidly Obese
HEENT: NormoCephalic, Moist mucous membranes and Atraumatic
Respiratory: CTAB
Cardiac: S1/S2 and Regular Rhythm; No Murmur, Rub or Gallop
Breast: Deferred by me
GI: Soft, Non Tender ({on dilaudid), Non Distended and Normal Bowel Sounds; No Organomegaly
Rectal: Deferred by Provider
Genito-urinary: Deferred by me
Musculoskeletal: No Clubbing, No Cyanosis and No Edema
Skin: Warm and IV/Catheter Site
Neuro: Awake, AO x 3 and Nonfocal/grossly intact
Psych: Calm and Intact Judgment/Insight
#abdominal pain
#sepsis likely 2/2 acute cholecystitis, emphysematous cholecystitis
-s/p Lap Nay 05/12 with IOC for acute gangrenous cholecystitis
- IVF
-Zosyn
-Continue 7 day Post op Abx regimen d/t purulence and sepsis seen on admission.
-Drain removed
- pain regimen
LFD
-F/u cultures
-no diarrhea noted
#Acute Hypoxic Respiratory failure
#Dyspnea
#Fluid Overload with Pulmonary Edema 2/2 to Fluid resuscitation
#Acute HFpEF
-89% on RA
-Responded well to Lasix
-ECHO with EF 55% with grade 1 diastolic dsfxn.
-F/u outpatient, does not require longstanding lasix at this time - appears euvolemic
#insomnia
- continue zolpidem
#hyperlipidemia
- atorvastatin - holding while npo
#anxiety
# Prostatatomegaly
� Follow-up urology outpatient
More than 30 minutes spent in discharge including
Final examination of the patient
Summarizing hospital stay
Instructions for continuing care to all relevant caregivers
Preparation of discharge records, prescriptions, and referral forms
Total time spent (in minutes): 37
Anticipated Discharge: Today
Subjective/Interval History
-
Date of Service: May 14, 2025
Patient's Rester status much improved, on room air breathing with no issues
Objective Data
-
Labs:
Laboratory Results
05/14/25
05:53
WBC 15.8 H
Hgb 11.8 L
Hct 35.7 L
Plt Count 254
Sodium 137
Potassium 3.5
Chloride 105
Carbon Dioxide 28
BUN 17
Creatinine 0.9
Glucose 108 H
Calcium 7.9 L
Total Bilirubin 0.7
AST 47
ALT 48
Alkaline Phosphatase 77
Vital Signs:
Vital Signs
Temp Pulse Resp BP Pulse Ox
98.4 F 85 16 129/71 94
05/14/25 07:20 05/14/25 08:30 05/14/25 08:30 05/14/25 07:20 05/14/25 09:45
I&O
05/13/25 05/14/25 05/15/25
06:59 06:59 06:59
Intake Total 180 / 180 1580 / 1580 480 / 480
Output Total 10 160 / 160
Balance 170 / 170 1420 / 1420 480 / 480
Review of Systems
-
History Source: Patient
All other systems: Not reviewed unless documented
Data Reviewed
-
CT Scan: Report Reviewed by me
Labs: Labs Reviewed by me
--- NOTE | 2025-05-14 11:38 | W.DS.TRANS ---
DC Summary - Support Staff
-
Discharge Instructions:
Discharge Diagnosis/Procedures Acute cholecystitis s/p laparoscopic
cholecystectomy
Diet Low Fat,Regular
Additional Diets If issues with bloating, crampy abdominal pain,
or diarrhea follow a low-fat diet
Activity No strenuous activity
Additional Activity No heavy lifting (>20 lbs) for 2 to 3 weeks
postoperatively
Driving Restrictions No driving if too sore or taking narcotics
Bathing Restrictions OK to Shower
Blood Work cbc and bmp in 3-5 days with pcp
Wound Care Keep incisions clean and dry. Glue will flake
off in 2 to 3 weeks. Stitches will dissolve.
Use ice to the abdomen to reduce any bruising or
swelling. Cover old drain site with gauze and
tape as needed for any drainage. Okay to remove
when drainage has stopped.
Instructions:
Stand-Alone Forms:
Changes to Home Medications: Yes
Discharge Medications:
DC Medications w/original date entered in [facility]
acetaminophen 500 mg tablet (Tylenol Extra Strength) 2,000 mg PO BIDPRN PRN mild pain 05/11/25
alprazolam 0.25 mg tablet 0.25 mg PO DAILYPRN PRN anxiety 05/11/25
atorvastatin 10 mg tablet 10 mg PO HS High Cholesterol 05/11/25
bismuth subsalicylate 262 mg/15 mL oral suspension (Kaopectate (bismuth subsalicylate)) 524 mg PO TIDPRN PRN stomach pain 05/11/25
bismuth subsalicylate 262 mg/15 mL oral suspension (Pepto-Bismol) 1,048 mg PO ONCE PRN stomach pain 05/11/25
omeprazole 40 mg capsule,delayed release 40 mg PO DAILY Gastrointestinal Issue 05/11/25
zolpidem 10 mg tablet 10 mg PO HS Sleep 05/11/25
amoxicillin 875 mg-potassium clavulanate 125 mg tablet 1 tab PO Q12 antibiotic 6 days #12 tabs 05/14/25
ibuprofen 200 mg tablet 400 - 600 mg (2 - 3 x 200 mg) PO Q6HPRN PRN moderate pain #1 tab 05/14/25
Home Medication Changes
amoxicillin 875 mg-potassium clavulanate 125 mg tablet 1 tab PO Q12 antibiotic 6 days #12 tabs 05/14/25
ibuprofen 200 mg tablet 400 - 600 mg (2 - 3 x 200 mg) PO Q6HPRN PRN moderate pain #1 tab 05/14/25
Pending Results: No
--- NOTE | 2025-05-14 12:10 | CM ---
CM following re: discharge planning.
Reviewed pt's chart, met with pt.
Pt is POD#2 s/p laparoscopic cholecystectomy w IOC for acute gangrenous cholecystitis. Pt stated he is doing well.
Discharge order noted. Pt is aware, expressed his agreement with discharge and pt stated his spouse will transport him home.
IMM reviewed, placed on chart, pt has a copy.
No after care VN services identified.
D/C plan: home with no after care VN needs. Spouse to transport.
[2025-05-14 12:23] VITALS: BP 116/61
== END 2025-05-14 13:07 | disposition home or self-care (01) | DRG 853 ==
LOC: 2 SOUTH 23:42
PROVIDERS: Emergency Medicine; Nurse Practitioner Family; Radiology Vascular & Interventional Radiology; ADMITTING PHYSICIAN Hospitalist; ATTENDING PHYSICIAN Internal Medicine; CONSULT PHYSICIAN Surgery; EMERGENCY PHYSICIAN Emergency Medicine; FAMILY PHYSICIAN Student in an Organized Health Care Education/Training Program
PROC: 0W9G40Z Drainage of Peritoneal Cavity with Drainage Device, Percutaneous Endoscopic Approach (ICD-10-PCS; 2025-05-12)
PROC: 0FT44ZZ Resection of Gallbladder, Percutaneous Endoscopic Approach (ICD-10-PCS; 2025-05-12)
PROC: BF131ZZ Fluoroscopy of Gallbladder and Bile Ducts using Low Osmolar Contrast (ICD-10-PCS; 2025-05-12)
DX: A41.9 Sepsis, unspecified organism (principal); I50.31 Acute diastolic (congestive) heart failure; J96.01 Acute respiratory failure with hypoxia; K80.00 Calculus of gallbladder with acute cholecystitis without obstruction; R19.7 Diarrhea, unspecified; K82.A1 Gangrene of gallbladder in cholecystitis; F41.9 Anxiety disorder, unspecified; G47.00 Insomnia, unspecified; E78.00 Pure hypercholesterolemia, unspecified; K76.0 Fatty (change of) liver, not elsewhere classified; N40.0 Benign prostatic hyperplasia without lower urinary tract symptoms; E66.01 Morbid (severe) obesity due to excess calories; Z82.49 Family history of ischemic heart disease and other diseases of the circulatory system; Z81.8 Family history of other mental and behavioral disorders; Z68.30 Body mass index [BMI] 30.0-30.9, adult; Z11.52 Encounter for screening for COVID-19; Z98.1 Arthrodesis status
CPT/HCPCS: 71045; 74177; 74300; 76000; 80048; 80053; 81003; 81015; 83605; 83690; 83880; 85025; 85027; 87040; 87045; 87046; 87324; 87427; 87449; 87502; 87811; 88304; 93306; 94640; 96361; 96365; 96375; 99291; A4300; Q9967